=== PATIENT | female | born 1995 | race American Indian/Alaskan Native ===

== ENCOUNTER 2021-06-22 01:50 | Emergency (ER) | payer OTHER ==
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
[2021-06-22 06:43] VITALS: BP 123/68
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
== END 2021-06-22 06:45 | disposition home or self-care (01) ==
LOC: ED 01:50
DX: O26.891 Other specified pregnancy related conditions, first trimester (principal); R10.2 Pelvic and perineal pain; Z3A.12 12 weeks gestation of pregnancy
CPT/HCPCS: 36415; 76801; 76802; 76817; 84702; 99284

== ENCOUNTER 2021-07-02 20:04 | Emergency (ER) | payer OTHER ==
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
[2021-07-02 23:08] LABS: Basophils # (Auto) 0.2 K/mm3 (0.0-0.1); Basophils % (Auto) 2.5 % (0.0-1.8); Eosinophils # (Auto) 0.1 K/mm3 (0.0-0.4); Eosinophils % (Auto) 1.5 % (0.0-4.3); Hematocrit 31.1 % (30.3-42.9); Hemoglobin 10.8 gm/dl (10.1-14.3); Lymphocytes # (Auto) 0.9 K/mm3 (1.2-5.4); Lymphocytes % (Auto) 13.8 % (13.4-35.0); Mean Corpuscular HGB Conc 35 % (30-34); Mean Corpuscular Volume 87 fl (79-97); Monocytes # (Auto) 0.4 K/mm3 (0.0-0.8); Monocytes % (Auto) 6.5 % (0.0-7.3); Platelet Count 190 K/mm3 (140-440); Red Blood Count 3.58 M/mm3 (3.65-5.03)
[2021-07-02 23:22] LABS: Alanine Aminotransferase 27 units/L (7-56); Albumin 3.8 g/dL (3.9-5); Blood Urea Nitrogen 7 mg/dL (7-17); Hemolysis Index 3
[2021-07-02 23:30] LABS: BUN/Creatinine Ratio 18
[2021-07-03 01:22] LABS: Bilirubin,Urine NEG (Negative); Blood,Urine NEG (Negative); Calcium Oxalate Crystals,Urine FEW; Color,Urine Yellow (Yellow); Mucus,Urine FEW /HPF; Protein,Urine <15 mg/dL mg/dL (Negative); Urobilinogen,Urine < 2.0 mg/dL (<2.0)
--- NOTE | 2021-07-03 02:04 | Ultrasound Report ---
ULTRASOUND OBSTETRIC fetus A INDICATION / CLINICAL INFORMATION: pain in . TECHNIQUE: Transabdominal. COMPARISON: None available. FINDINGS: GESTATIONAL SAC: Well-defined oval shape and intrauterine in location. YOLK SAC: No significant abnormality. EMBRYO/FETUS: No significant abnormality. - [place]-Rump Length = 6.4 cm = 12 weeks, 5 day(s). - Heart Rate, beats per minute (if present) = 161 ADNEXA: No significant abnormality. FREE FLUID: None. ADDITIONAL FINDINGS: None. IMPRESSION: 1. Twin living intrauterine with estimated sonographic age FETUS A of 12 weeks, 5 day(s). Signer Name: Sivakmuar Covarrubias MD Signed: 07/03/2021 2:00 AM Workstation Name: [id number]
--- NOTE | 2021-07-03 02:06 | Ultrasound Report ---
ULTRASOUND OBSTETRIC BABY B INDICATION / CLINICAL INFORMATION: PAIN. TECHNIQUE: Transabdominal. COMPARISON: None available. FINDINGS: GESTATIONAL SAC: Well-defined oval shape and intrauterine in location. YOLK SAC: No significant abnormality. EMBRYO/FETUS: No significant abnormality. - [place]-Rump Length = 6.5 cm = 12 weeks, 6 day(s). - Heart Rate, beats per minute (if present) = ADNEXA: No significant abnormality. FREE FLUID: None. ADDITIONAL FINDINGS: None. IMPRESSION: 1. TWIN living intrauterine with BABY B estimated sonographic age of 12 weeks, 6 day(s). 2. Baby A ultrasound dictated separately Signer Name: Sivakumar Covarrubias MD Signed: 07/03/2021 2:01 AM Workstation Name: [email or web address]
[2021-07-03 02:21] VITALS: BP 115/64
== END 2021-07-03 02:22 | disposition home or self-care (01) ==
LOC: ED 20:04
DX: O26.891 Other specified pregnancy related conditions, first trimester (principal); R10.2 Pelvic and perineal pain; Z3A.12 12 weeks gestation of pregnancy; Z98.890 Other specified postprocedural states
CPT/HCPCS: 36415; 76801; 76802; 80053; 81001; 84702; 85025; 99284